=== PATIENT | male | born 1950 | race Caucasian/White ===

== ENCOUNTER 2020-05-30 08:38 | Outpatient (CLI) | payer MEDICARE, OTHER, SELFPAY ==
--- NOTE | 2020-05-30 | CT_ITS ---
WS: [id number] CT CERVICAL SPINE TECHNIQUE: Noncontrast CT of the cervical spine with coronal and sagittal reformatted images. CLINICAL INFORMATION: NECK PAIN COMPARISON: MRI cervical October 2016 and December 2013 DLP: 2252.[address] scans at [facility] use at least one of these dose optimization techniques: automat ed exposure control; mA and/or kV adjustment per patient size (includes targeted exams where dose is matched to clinical indication); or iterative reconstruction. FINDINGS: Straightening of the normal cervical lordosis. Mild cervical curve convex right. Prior healed type II dens fracture with callus formation. C1-C2 fusion. C1 transpedicular screw fixation bilaterally. C2 and C3 posterior element screw fixation. Dorsal interconnecting rods appear intact. No evidence of lovell rdware loosening. Slight anterolisthesis C4 on C5. Disc space narrowing worse at C4-C5 C5-C6 and C6-C7. Small disc ost eophyte complexes at C5-C6 and C6-C7. No high-grade central canal stenosis. C2-C3: Normal. C3-C4: Mild disc osteophytic ridging. Mild bilateral bony foraminal narrowing right greater than left . Spinal canal is patent. Moderate left facet arthropathy. C4-C5: Disc osteophyte complex with loss of disc space height. Disc desiccation. Spinal canal and for amen are patent. Moderate left facet arthropathy. Mild bilateral foraminal narrowing. C5-C6: Disc osteophyte complex with endplate ridging. Mild left and no significant right foraminal na rrowing. Mild facet arthropathy. Spinal canal is patent. C6-C7: Slight retrolisthesis C6 on C7. Moderate right and mild left bony foraminal narrowing. Mild ce ntral canal stenosis. C7-T1: No significant disc bulging. Spinal canal and foramen are patent. Visualized lungs are well aerated. CT/CT cervical spin wo con* [id number] IMPRESSION: 1. Straightening of the normal cervical lordosis. Mild cervical curve convex r ight. 2. Prior healed type II dens fracture. Normal C1-C2 articulation which appears fused 3. Prior postoperative changes transpedicular C1 fusion. Posterior element fus ion C2 and C3. No evidence of hardware loosening. 4. Mild central canal stenosis C5-C6 due to disc osteophyte complex. 5. Bony foraminal narrowing worse at moderate right C6-7. 6. Otherwise mild bony foraminal narrowing described above.
== END 2020-05-30 08:39 | disposition home or self-care (01) ==
LOC: RADWPI 09:05
PROVIDERS: PCP Nurse Practitioner; Visit Provider Nurse Practitioner Family
DX: M54.2 Cervicalgia (principal); M43.22 Fusion of spine, cervical region; M48.02 Spinal stenosis, cervical region; M25.78 Osteophyte, vertebrae
CPT/HCPCS: 72125

== ENCOUNTER 2020-09-15 07:40 | Outpatient (CLI) | payer MEDICARE, OTHER, SELFPAY ==
--- NOTE | 2020-09-15 07:48 | USCV_ITS ---
Scooter Leo Age: 70 Gender: M : 1950 Exam Date: 09/15/2020 08:08 Ordering Phys: Alice Magdaleno NP Technologist: Estela Vincent Exam Location: [facility] – [place] Indication: AAA SCREENING HISTORY: Diameter (cm) AP x Transverse x Length Velocity (cm/s) Waveform Prox Aorta: 2.22 x 2.32 x 87.70 Mid Aorta: 2.10 x 2.55 x 84.00 Distal Aorta: 1.72 x 1.84 x 89.90 Right Iliac Prox: 1.00 x 0.91 x 149.30 Left Iliac Prox: 0.97 x 1.00 x 72.30 Stent Prox Landing x x Aneurysmal Sac Max x x Lt Lat Sac Dim Rt Lat Sac Dim Stent Dist Landing x x Right Iliac Stent x x Left Iliac Stent x x Right Renal Art Left Renal Art FINDINGS: Normal abdominal aortic dimensions Normal dimensions of the proximal common iliac arteries Normal Doppler flow velocities CONCLUSIONS No evidence of aneurysm in the abdominal aorta or in the proximal common iliac arteries. No significant stenosis in the aorta or in the common iliac arteries, based on the flow velocities Dr Diana Meadows MD [facility] WITH [facility] (Electronically Signed) Final Date: 15 September 2020 14:18 S
== END 2020-09-15 07:41 | disposition home or self-care (01) ==
PROVIDERS: PCP Nurse Practitioner; Visit Provider Nurse Practitioner
DX: Z13.6 Encounter for screening for cardiovascular disorders (principal)
CPT/HCPCS: 76706

== ENCOUNTER 2022-10-22 15:36 | Emergency (ER) | payer MEDICARE, SELFPAY ==
[2022-10-22 15:41] VITALS: BP 156/95; PULSE 78; RESP 16; TEMP 36.6; O2SAT 96; BMI 29.1
--- NOTE | 2022-10-22 15:59 | XRR_ITS ---
PROCEDURE INFORMATION: Exam: XR Right Wrist Exam date and time: 10/22/2022 4:22 PM Age: 72 years old Clinical indication: Pain; Wrist; Right; Additional info: Injury/lac, hit by tree branch, lac TECHNIQUE: Imaging protocol: Radiologic exam of the right wrist. Views: 3 or more views. COMPARISON: No relevant prior studies available. FINDINGS: Bones/joints: No fracture or other acute abnormality. Degenerative changes are seen in 1st CUSTODIAL joint and in the radioulnar articulation. Soft tissues: Normal. XR/XR wrist RT min 3V* [id number] IMPRESSION: Nonacute findings.
--- NOTE | 2022-10-22 16:48 | ED_ITS ---
HPI - Extremity Problem General: Chief complaint: Extremity Injury, Upper Stated complaint: arm lac Time Seen by Provider: 10/22/22 15:50 Source: patient Mode of arrival: ambulatory Limitations: no limitations History of Present Illness: Patient presents to the emergency department today for evaluation treatment of right wrist injury and laceration. He states that while up on a ladder, he was trying to cut down some limbs. He indicated a limb fell back and impacted the posterior right wrist causing a large laceration. He has had continuous bleeding since that point. He denies being on any chronic anticoagulation. Patient is also having generalized wrist pain. Review of Systems General: Reports: 10 or more systems reviewed and unremarkable except in HPI and below Physical Exam Const: COMMON NORMALS: no acute distress, patient oriented x3 and alert HENMT: COMMON NORMALS: normocephalic, atraumatic and hearing grossly normal bilaterally HEAD & SCALP: normocephalic and atraumatic Eye: COMMON NORMALS: Equal, round and reactive pupils present, EOMs intact bilaterally and conjunctivae normal CONJUNCTIVA: Yes conjunctivae normal PUPIL: Yes Equal, round and reactive pupils present Neck/C-Spine: COMMON NORMALS: full ROM and no JVD Lymph: LYMPHATIC: no lymphadenopathy noted Resp: COMMON NORMALS: normal respiratory effort, No retractions and No use of accessory muscles Cardio: COMMON NORMALS: no JVD and regular rate RATE: regular rate Extremity: NARRATIVE EXTREMITY EXAM: Patient has pain with range of motion of the right wrist. Patient does demonstrate mobility of the fingers of the right hand with the ability to make a fist as well as mobility of his elbow but, is holding his wrist at a neutral po sition without flexion or extension. Patient complains of pain while trying to extend the fingers but, will not extend the fingers solely due to pain. Patient has obvious swelling along the wrist just distal to the laceration and affecting primarily the medial side of the wrist. Neuro: COMMON NORMALS: patient oriented x3 SENSORIUM/ORIENTATION: Yes alert Psych: COMMON NORMALS: mental status grossly normal, Normal thought process present, cooperative and normal affect THOUGHT PROCESS: Normal thought process present Skin: COMMON NORMALS: no rashes or lesions noted and turgor normal NARRATIVE SKIN EXAM: Patient has a large laceration to the posterior right wrist a total of approximately 7 cm in length starting at the distal lateral portion of the wrist and progressing proximally across the mid wrist and continuing proximally towards the medial wrist-laceration is at a diagonal. There is no spurting of blood but a small, pulsatile bleeding noted. Patient is bleeding through his pressure dressings here in the ER. Significant wound edge separation noted. GENERAL SKIN EXAM: no rashes or lesions noted and turgor normal Procedures Laceration Laceration 1: Site: upper extremity (Posterior wrist) Side (If applicable): right Size (cm): 6 Description: irregular and contaminated Depth: simple, single layer (Full dermal and subcutaneous tissue injury) Local Anesthetic: lidocaine 1% and with epi Amount of anesthesia used (mL): 10 Pre-repair: wound explored, irrigated extensively (500 cc sterile saline and Betadine solution via squeeze bottle), deep structures intact, extensive debridement (Multiple organic foreign body removal via pickups) and wound margins revised (Trimming back of various dermal flaps) Skin layer closed with: nylon Size (cm): 4-0 Number of sutures: 13 Technique: simple, interrupted Subcutaneous layer closed with: vicryl Size: 4-0 Technique: running Course Vital Signs: Vital signs: Vital Signs Temperature 97.9 F 10/22/22 15:41 Pulse Rate 78 10/22/22 15:41 Respiratory Rate 16 10/22/22 15:41 Blood Pressure 156/95 10/22/22 15:41 Pulse Oximetry 96 10/22/22 15:41 Oxygen Delivery Me thod Room Air 10/22/22 15:41 MDM - Extremity (Nontraumatic) Medical Decision Making Patient had significant laceration with bleeding through pressure bandaging and wound edge separation as far as 2 and half centimeters wide. X-ray was negative for any signs of underlying fracture but, patient does have pain with extension of his fingers and obvious swelling in the right wrist region. To get a second opinion from Dr. Restrepo regarding the patient's continued bleeding. He recommended injection with lidocaine with epi to better control bleeding and, after anesthesia was achieved locally and irrigation with Betadine and saline solution, I did have him look again as, the deeper structures were now visible though I saw no injury to connective tissues or musculature in the deeper layers. Running suture was placed to better approximate the wound edges. The most medial portion of the wound is missing quite a bit of soft tissue and, there is no specific wound edge to be brought together. However, the majority of the wound was able to be repaired using the running internal suture as well as the external nonabsorbable nylon sutures. Patient was bandaged here in the emergency department with instructions for continued wound care and bandage changing at home. Due to the depth of the wound and contamination of the wound I did start him on an oral antibiotic and discussed the importance of why he needs to take it. He was also given a short course of Kemme[place] signed by Dr. Restrepo. I also initiated an orthopedic referral for follow-up given the extent of the wound sustained and, issues with extension of his fingers. He was provided a wrist brace to wear if he can tolerate and, once swelling goes down from his wound. Patient's tetanus immunization was updated today. He was given strict return precautions for any signs of onset of infection. Patient verbalized understanding and agreement to treatment plan. Differential Diagnosis Likely cellulitis (Skin laceration, tendon laceration, wrist sprain, wrist fracture) Lab Data Radiology Impressions Wrist X-Ray 10/22/22 15:59 IMPRESSION: Nonacute findings. Discharge Plan Discharge Patient Disposition: Home Clinical Impression: Contusion of right wrist, initial encounter, Laceration of right wrist Condition: Stable Prescriptions: New doxycycline hyclate 100 mg capsule 100 mg PO BID 10 Days Qty: 20 0RF No Action metoprolol tartrate 100 mg tablet 100 mg PO BID lisinopril 20 mg tablet 20 mg PO DAILY trazodone 100 mg tablet 200 mg PO QPM PRN (Reason: Sleep) levothyroxine 200 mcg tablet 200 mcg PO DAILY Discharge Orders: Discharge ED (Routine); Ordered 10/22/22 Ordered By: Olivia Aguila Referrals: Alice Magdaleno NP [Primary Care Provider] - Discharge Diet: Usual diet Discharge Activity: Limit activity as instructed Patient Instructions: Care For Your Stitches (ED) Activity Restrictions/Additional Instructions: You had a significant laceration to your right wrist. It is full-thickness through the dermal and subcutaneous layer but, I did not see any obvious damage to the underlying connective tissues or musculature. Still, I am requesting a follow-up appointment with orthopedics for recheck to make sure mobility has improved with treatment. If at all possible, wear the wrist brace for comfort anytime you are up and active to help support your wrist. Wash your wound twice a day with warm water and a mild soap. Apply the bandaging as shown to you through the emergency department after each cleaning. If the bandaging becomes wet or soiled we recommend washing the wound and reapplying bandaging. Your stitches need to come out in approximately 10 days. You do have stitches on the inside but, these will dissolve on their own. We are putting you on prophylactic antibiotics as your laceration was very deep and your wound was contaminated. While we did irrigate well and I removed much of the contamination, we still want to make sure that no deep infection develops. If you do have concerns for worsening wrist issues including concerns for wound infection we recommend being seen and reevaluated soon as possible. Coding Level of Care Code ED [employer] for Geovany Hickman
[2022-10-22] MEDS: acetaminophen 500 mg Tablet 1000 MG PO (16:54)
[2022-10-22] MEDS: tetanus-dipt-pertussis 0.5 mL SDV IM (17:06)
--- NOTE | 2022-10-25 07:25 | DCPLANNER ---
Addendum entered by Monika Beavers 10/25/22 15:42: respiratory therapy manager received the following message from the ortho clinic regarding follow up appointment: attempt made to contact patient - left vm to call our clinic to schedule w/ lizeth diaz for 10/28 Original Note: respiratory therapy manager had message to schedule a follow up appointment for patient with ortho. respiratory therapy manager sent patients information to the front office staff at ortho. Patients information will be printed and reviewed. Clinic will call patient with appointment information.
== END 2022-10-22 19:05 | disposition home or self-care (01) ==
PROVIDERS: Emergency Provider Physician Assistant; PCP Nurse Practitioner
DX: S60.211A Contusion of right wrist, initial encounter (principal); S61.511A Laceration without foreign body of right wrist, initial encounter; W20.8XXA Other cause of strike by thrown, projected or falling object, initial encounter; Z23 Encounter for immunization
CPT/HCPCS: 12032; 73110; 90715; 99283